=== PATIENT | female | born 1975 | race American Indian/Alaskan Native ===

== ENCOUNTER 2018-12-29 00:52 | Emergency (ER) | payer BC ==
[2018-12-29] MEDS ORDERED: BOOSTRIX IM ONE ×2 (01:16→03:39)
[2018-12-29] MEDS ORDERED: TYLENOL PO ONE (03:34)
[2018-12-29] MEDS ORDERED: IBUPROFEN PO ONE (03:34)
[2018-12-29] MEDS ORDERED: VALIUM PO ONE (03:35)
--- NOTE | 2018-12-29 04:18 | XRay Report ---
LEFT FOREARM ONE VIEW INDICATION / CLINICAL INFORMATION: foreign bodies : puncture wound COMPARISON: None available. FINDINGS: BONES / JOINT(S): No acute fracture or subluxation. No significant arthritis. SOFT TISSUES: Small amount of soft tissue gas is noted. No radiopaque foreign bodies are seen. ADDITIONAL FINDINGS: None. Signer Name: Marcello Lobo MD Signed: 12/29/2018 4:14 AM Workstation Name: [id number]
--- NOTE | 2018-12-29 04:18 | XRay Report ---
LEFT FEMUR 2 VIEWS INDICATION / CLINICAL INFORMATION: puncture wounds - foreign bodies COMPARISON: None available. FINDINGS: BONES / JOINT(S): No acute fracture or subluxation. No significant arthritis. SOFT TISSUES: There is a small amount of soft tissue gas noted in the thigh. Several small radiopaque foreign bodies project in the soft tissues of the left thigh. ADDITIONAL FINDINGS: None. Signer Name: Marcello Lobo MD Signed: 12/29/2018 4:13 AM Workstation Name: [id number]
--- NOTE | 2018-12-29 05:45 | Emergency Department Report ---
ED Fall HPI - General Chief Complaint: Fall Stated Complaint: FALL, CUTS ON LEFT ARM AND LEG Source: patient Mode of arrival: Ambulatory - History of Present Illness Initial Comments: Patient is a 42-year-old -[place] female with a history of hypertension, equ-khncjzh-dpuiwbbgd diabetes, anxiety and depression who presents to the ED with complaint of acute onset persistent painful bleeding left forearm, left thigh and forehead abrasions and lacerations after she fell off the dresser that she had climbed to [place] and kill an insect that was climbing the [place] in her room at home about 2 hours ago. Patient states that she fell on broken pieces of glass and landed on the left side. Patient denies loss of consciousness, headache, neck pain, chest pain, shortness of breath, dizziness, change in vision, numbness and tingling of upper and lower extremities bilaterally, abdominal pain, nausea and vomiting or syncope and seizures. MD Complaint: fall, other (left forearm abrasion and laceration; left thigh abrasion and laceration; frontal scal scalp abrasion) -: Sudden, hour(s) (2) Fall From: standing (climbed a dresser to kill an insect and lost balance and fell on floor, landing on broken glasses) When Fall Occurred: 1-3 hours [employer] Fall Witnessed: yes, by family Place Fall Occurred: home Loss of Consciousness: none Prolonged Down Time?: no Symptoms Prior to Fall: none Location: head (frontal scalp laceration), other (left forearm and thigh lacerations and abrasions) Location - Extremities: Left: Forearm (abrasions and lacerations), Thigh (abrasions, lacerations) Severity: severe Severity scale (0 -10): 7 Quality: burning, sharp, aching Context: tripped/slipped Associated Symptoms: denies. denies: headache, neck pain, numbness, weakness, chest paint, shortness of breath, abdominal pain, hematuria, lightheaded, vertigo, confusion, other - Related Data Previous Rx's Medication Instructions Recorded Last Taken Type Ibuprofen [Motrin] 800 mg PO Q8HR PRN #20 tablet 12/29/18 Unknown Rx cephALEXin [Keflex] 500 mg PO Q8HR #30 cap 12/29/18 Unknown Rx tiZANidine [Zanaflex 4mg TAB] 4 mg PO Q8H PRN #15 tablet 12/29/18 Unknown Rx traMADol [Ultram] 50 mg PO Q6HR PRN #15 tablet 12/29/18 Unknown Rx Allergies Allergy/AdvReac Type Severity Reaction Status Date / Time codeine Allergy Hives Verified 12/29/18 04:27 ED Review of Systems ROS: Stated complaint: FALL, CUTS ON LEFT ARM AND LEG Other details as noted in HPI Constitutional: denies: chills, fever Eyes: denies: eye pain, eye discharge, vision change ENT: denies: ear pain, throat pain Respiratory: denies: cough, shortness of breath, wheezing Cardiovascular: denies: chest pain, palpitations Endocrine: no symptoms reported Gastrointestinal: denies: abdominal pain, nausea, diarrhea Genitourinary: denies: urgency, dysuria, discharge Musculoskeletal: arthralgia (left forearm and thigh abrasions and lacerations with pain). denies: back pain, joint swelling Skin: other (Bleeding abrasions and lacerations of left forearm and thigh, and also forehead). denies: rash, lesions Neurological: denies: headache, weakness, paresthesias Psychiatric: anxiety. denies: depression Hematological/Lymphatic: denies: easy bleeding, easy bruising ED Past Medical Hx - Past Medical History Previous Medical History?: Yes Hx Hypertension: Yes Hx Diabetes: Yes - Surgical History Past Surgical History?: Yes Additional Surgical History: Gastric Bypass - Social History Smoking Status: Never Smoker Substance Use Type: None - Medications Home Medications: Home Medications Medication Instructions Recorded Confirmed Last Taken Type Ibuprofen [Motrin] 800 mg PO Q8HR PRN #20 tablet 12/29/18 Unknown Rx cephALEXin [Keflex] 500 mg PO Q8HR #30 cap 12/29/18 Unknown Rx tiZANidine [Zanaflex 4mg TAB] 4 mg PO Q8H PRN #15 tablet 12/29/18 Unknown Rx traMADol [Ultram] 50 mg PO Q6HR PRN #15 tablet 12/29/18 Unknown Rx ED Physical Exam - General Limitations: No Limitations General appearance: alert, in no apparent distress - Head Head exam: Present: other (frontal saclp small puncture wound and abrasion) - Eye Eye exam: Present: normal appearance, PERRL, EOMI Pupils: Present: normal accommodation - ENT ENT exam: Present: normal exam, normal orophraynx, mucous membranes moist, TM's normal bilaterally, normal external ear exam - Neck Neck exam: Present: normal inspection, full ROM. Absent: tenderness, meningismus, lymphadenopathy - Respiratory Respiratory exam: Present: normal lung sounds bilaterally. Absent: respiratory distress, wheezes, rales, stridor, chest wall tenderness, accessory muscle use, decreased breath sounds - Cardiovascular Cardiovascular Exam: Present: regular rate, normal rhythm, normal heart sounds. Absent: systolic murmur, diastolic murmur, rubs, gallop - GI/Abdominal GI/Abdominal exam: Present: soft, normal bowel sounds. Absent: tenderness, guarding, rebound, hyperactive bowel sounds, hypoactive bowel sounds, organomegaly - Extremities Exam Extremities exam: Present: normal inspection, full ROM, tenderness (palpable left forearm and thigh tenderness due to bleeding abrasions and puncture wounds), normal capillary refill. Absent: pedal edema, joint swelling - Back Exam Back exam: Present: normal inspection, full ROM. Absent: tenderness, CVA tenderness (R), CVA tenderness (L), muscle spasm, paraspinal tenderness, vertebral tenderness - Neurological Exam Neurological exam: Present: alert, oriented X3, CN II-XII intact, normal gait, reflexes normal - Psychiatric Psychiatric exam: Present: normal affect, normal mood - Skin Skin exam: Present: warm, dry, intact, normal color, other (Bleeding abrasions and lacerations of left forearm and thigh, and abrasion of forehead). Absent: rash ED Course Vital Signs 12/29/18 12/29/18 12/29/18 01:01 04:12 04:13 Temperature 98 F Pulse Rate 78 Respiratory 16 18 18 Rate Blood Pressure 137/91 O2 Sat by Pulse 100 Oximetry 12/29/18 05:12 Temperature Pulse Rate Respiratory 16 Rate Blood Pressure O2 Sat by Pulse Oximetry - Reevaluation(s) Reevaluation #1: 12/29/18 06:39 This is a 43-year-old female who presented to the ED with extensive abrasions on the left forearm and left thigh as well as mild abrasion of the forehead after she slipped and fell off a dresser that she had climbed to kill an insect 2 hours ago. In the ED, patient is alert and oriented 3, and crying in pain but in no acute distress. Patient was treated for pain in the ED and left forearm x-ray shows no acute fractures or subluxations, or presence of any foreign bodies in the tissues. Left femur x-ray shows no acute fractures or subluxation but there are multiple foreign bodies sticking out on the left thigh superficial tissues. On reevaluation, patient's pain is well controlled with medications. Patient's forehead abrasions were cleaned thoroughly and a Dermabond applied and reinforced with Steri-Strips. The left forearm bleeding lacerations were sutured per protocol and the patient tolerated the procedure well. The left thigh abrasions were cleaned thoroughly and Neosporin applied to them and dressed appropriately. Patient was discharged home on pain medications and oral antibiotics and advised to follow-up with her primary care physician in the 7-10 days for reevaluation. Patient was also advised to return to the ED immediately if symptoms get worse, otherwise she was advised to return to the ED or to her primary care physician in 12-14 days for suture removal. - Laceration /Wound Repair Left Arm Wound Location: upper extremity (left forearm laceration) Wound Length (cm): 4 Wound's Depth, Shape: superficial, linear Wound Explored: contaminated Irrigated w/ Saline (ccs): 50 Betadine Prep?: Yes Anesthesia: 1% Lidocaine Volume Anesthetic (ccs): 5 Wound Debrided: extensive Wound Repaired With: sutures Suture Size/Type: 4:0, proline Number of Sutures: 4 Layer Closure?: No Sterile Dressing Applied?: Yes Progress: Patient tolerated the procedure well and was discharged home on pain medications and antibiotics. Left Dorsal Arm Wound Location: upper extremity (left dorsal left forearm) Wound Length (cm): 6 Wound's Depth, Shape: superficial, linear Wound Explored: contaminated Irrigated w/ Saline (ccs): 50 Betadine Prep?: Yes Anesthesia: 1% Lidocaine Volume Anesthetic (ccs): 5 Wound Debrided: extensive Wound Repaired With: sutures Suture Size/Type: 4:0, proline Number of Sutures: 7 Layer Closure?: No Sterile Dressing Applied?: No Progress: Patient tolerated the procedure well and was discharged home on pain medications and antibiotics. Frontal Wound Location: head (frontal scalp) Wound Length (cm): 2 Wound's Depth, Shape: superficial, flap Wound Explored: contaminated Irrigated w/ Saline (ccs): 20 Betadine Prep?: Yes Anesthesia: 1% Lidocaine (Let gel) Volume Anesthetic (ccs): 3 Wound Debrided: extensive Wound Repaired With: Steri-strips (3), Dermabond Layer Closure?: No Sterile Dressing Applied?: No Progress: Patient tolerated the procedure well ED Medical Decision Making - Radiology Data Radiology results: report reviewed, image reviewed Findings [address] [address] XRay Report Signed Patient: ETELVINA EPPS MR#: [id number] : 1975 Acct:[id number] Age/Sex: 43 / F ADM Date: 12/29/18 Loc: ED Attending Dr: Ordering Physician: SMITH LILLY Date of Service: 12/29/18 Procedure(s): XR forearm 1V LT Accession Number(s): [id number] cc: SMITH LILLY Fluoro Time In Minutes: LEFT FOREARM ONE VIEW INDICATION / CLINICAL INFORMATION: foreign bodies : puncture wound COMPARISON: None available. FINDINGS: BONES / JOINT(S): No acute fracture or subluxation. No significant arthritis. SOFT TISSUES: Small amount of soft tissue gas is noted. No radiopaque foreign bodies are seen. ADDITIONAL FINDINGS: None. Signer Name: Marcello Lobo MD Signed: 12/29/2018 4:14 AM Workstation Name: [id number] Transcribed By: SS Dictated By: Marcello Lobo MD Electronically Authenticated By: Marcello Lobo MD Signed Date/Time: 12/29/18 [address] [address] XRay Report Signed Patient: ETELVINA EPPS MR#: [id number] : 1975 Acct:[id number] Age/Sex: 43 / F ADM Date: 12/29/18 Loc: ED Attending Dr: Ordering Physician: SMITH LILLY Date of Service: 12/29/18 Procedure(s): XR femur 2+V LT Accession Number(s): [id number] cc: SMITH LILLY Fluoro Time In Minutes: LEFT FEMUR 2 VIEWS INDICATION / CLINICAL INFORMATION: puncture wounds - foreign bodies COMPARISON: None available. FINDINGS: BONES / JOINT(S): No acute fracture or subluxation. No significant arthritis. SOFT TISSUES: There is a small amount of soft tissue gas noted in the thigh. Several small radiopaque foreign bodies project in the soft tissues of the left thigh. ADDITIONAL FINDINGS: None. Signer Name: Marcello Lobo MD Signed: 12/29/2018 4:13 AM Workstation Name: [id number] Transcribed By: SS Dictated By: Marcello Lobo MD Electronically Authenticated By: Marcello Lobo MD Signed Date/Time: 12/29/18412 DD/ 1 TD/TT: - Medical Decision Making This is a 43-year-old female who presented to the ED with extensive abrasions on the left forearm and left thigh as well as mild abrasion of the forehead after she slipped and fell off a dresser that she had climbed to kill an insect 2 hours ago. In the ED, patient is alert and oriented 3, and crying in pain but in no acute distress. Patient was treated for pain in the ED and left forearm x-ray shows no acute fractures or subluxations, or presence of any foreign bodies in the tissues. Left femur x-ray shows no acute fractures or subluxation but there are multiple foreign bodies sticking out on the left thigh superficial tissues. On reevaluation, patient's pain is well controlled with medications. Patient's forehead abrasions were cleaned thoroughly and a Dermabond applied and reinforced with Steri-Strips. The left forearm bleeding lacerations were sutured per protocol and the patient tolerated the procedure well. The left thigh abrasions were cleaned thoroughly and Neosporin applied to them and dressed appropriately. Patient was discharged home on pain medications and oral antibiotics and advised to follow-up with her primary care physician in the 7-10 days for reevaluation. Patient was also advised to return to the ED immediately if symptoms get worse, otherwise she was advised to return to the ED or to her primary care physician in 12-14 days for suture removal. - Differential Diagnosis left forearm lacerations; Abrasions; Left thigh contusion, foreign bodies Critical care attestation.: If time is entered above; I have spent that time in minutes in the direct care of this critically ill patient, excluding procedure time. ED Disposition Clinical Impression: Abrasion of left forearm, initial encounter, Abrasion, left thigh, initial encounter Abrasion of scalp Qualifiers: Encounter type: initial encounter Qualified Code(s): S00.01XA - Abrasion of scalp, initial encounter Laceration of left forearm Qualifiers: Encounter type: initial encounter Qualified Code(s): S51.812A - Laceration without foreign body of left forearm, initial encounter Disposition: TO HOME OR SELFCARE Is pt being admited?: No Does the pt Need Aspirin: No Condition: Stable Instructions: Muscle Strain (ED), Abrasion (ED), Musculoskeletal Pain (ED) Additional Instructions: Take medication with food, drink plenty of fluids and follow up with your primary care physician in 7-10 days for reevaluation. Return to the ED immediately if symptoms get worse. Prescriptions: cephALEXin [Keflex] 500 mg PO Q8HR #30 cap Ibuprofen [Motrin] 800 mg PO Q8HR PRN #20 tablet PRN Reason: Pain , Severe (7-10) traMADol [Ultram] 50 mg PO Q6HR PRN #15 tablet PRN Reason: Pain tiZANidine [Zanaflex 4mg TAB] 4 mg PO Q8H PRN #15 tablet PRN Reason: Muscle Spasm Referrals: PRIMARY CARE,MD [Primary Care Provider] - 3-5 Days Time of Disposition: 05:48 Print Language: M[place]
[2018-12-29] MEDS ORDERED: KEFLEX PO ONE (05:49)
[2018-12-29] MEDS ORDERED: NACL 0.9% 500 ML IR ONE (05:49)
[2018-12-29] MEDS ORDERED: TRIPLE ANTIBIOTIC TP ONE (05:49)
[2018-12-29] MEDS ORDERED: XYLOCAINE 2% INFILTRATI ONE (06:14)
[2018-12-29] MEDS ORDERED: LET TOPICAL TP ONE ×3 (06:16→06:46)
[2018-12-29] MEDS ORDERED: NORCO 5/325 PO ONE (06:45)
[2018-12-29] MEDS ORDERED: ZOFRAN ODT PO ONE (06:45)
[2018-12-29] MEDS ORDERED: XYLOCAINE 1% MPF 5 mL INFILTRATI ONE (06:46)
[2018-12-29 07:10] VITALS: BP 138/88
[2018-12-29] MEDS ORDERED: TRIPLE ANTIBIOTIC TP SCH (08:00)
== END 2018-12-29 07:05 | disposition home or self-care (01) ==
LOC: ED 00:52
DX: S51.812A Laceration without foreign body of left forearm, initial encounter (principal); S01.03XA Puncture wound without foreign body of scalp, initial encounter; S50.812A Abrasion of left forearm, initial encounter; S70.312A Abrasion, left thigh, initial encounter; Z88.5 Allergy status to narcotic agent; Z79.899 Other long term (current) drug therapy; I10 Essential (primary) hypertension; E11.9 Type 2 diabetes mellitus without complications; W17.89XA Other fall from one level to another, initial encounter; Y93.89 Activity, other specified; Y92.89 Other specified places as the place of occurrence of the external cause; Y99.8 Other external cause status
CPT/HCPCS: 90471; 90715; A6250; Q0162